=== PATIENT | male | born 1990 ===

== ENCOUNTER 2018-01-20 08:01 | Outpatient (CLI) | payer OTHER ==
[~2018-01-20] VITALS: Ht 162.6 cm; Wt 64.9 kg
== END 2018-01-20 18:01 | disposition home or self-care (01) ==
LOC: OFIC 805 08:01
DX: J30.89 Other allergic rhinitis (principal); R49.0 Dysphonia; K21.0 Gastro-esophageal reflux disease with esophagitis

== ENCOUNTER → 2019-03-09 15:08 | Outpatient (CLI) | payer OTHER | END | disposition home or self-care (01) | LOC: LAB 15:08 | DX: J44.1 Chronic obstructive pulmonary disease with (acute) exacerbation (principal) ==

== ENCOUNTER → 2019-07-21 | Outpatient (CLI) | payer OTHER ==
[~2019-07-21] MED LIST: PRILOSEC OTC20 MG PO; TESSALON PERLE100 M1 PO; ZANTAC150 MG PO
== END | disposition home or self-care (01) ==
LOC: OFIC 805 11:17
DX: J30.89 Other allergic rhinitis (principal); K21.0 Gastro-esophageal reflux disease with esophagitis; T17.298A Other foreign object in pharynx causing other injury, initial encounter

== ENCOUNTER 2019-08-31 13:57 | Outpatient (CLI) | payer OTHER ==
[2019-08-31] MEDS ORDERED: PRILOSEC OTC20 MG PO (16:01)
[2019-08-31] MEDS ORDERED: PEPCID AC20 MG PO (16:01)
[2019-08-31] MEDS ORDERED: TESSALON PERLE100 M1 PO (16:02)
== END 2019-08-31 16:26 | disposition home or self-care (01) ==
LOC: OFIC 805 13:57
DX: R09.89 Other specified symptoms and signs involving the circulatory and respiratory systems (principal); K21.0 Gastro-esophageal reflux disease with esophagitis; R49.0 Dysphonia; J30.89 Other allergic rhinitis

== ENCOUNTER 2022-01-25 18:12 | Emergency (ER) | payer OTHER ==
[~2022-01-25] VITALS: Ht 162.6 cm; Wt 65.8 kg
[~2022-01-25 18:12] MED LIST changes: +PEPCID AC20 MG PO
[2022-01-25] MEDS ORDERED: SINGULAIR 10MG10 MG (19:08)
== END 2022-01-26 00:33 | disposition home or self-care (01) ==
LOC: ER 18:12
DX: K13.3 Hairy leukoplakia (principal); D84.9 Immunodeficiency, unspecified; Z91.013 Allergy to seafood